=== PATIENT | female | born 1940 | race Caucasian/White ===

== ENCOUNTER → 2016-12-19 | Outpatient (CLI) | payer OTHER | LOC: FIMAGING 12:56 | DX: Z12.31 Encounter for screening mammogram for malignant neoplasm of breast (principal) | CPT/HCPCS: G0202 ==

== ENCOUNTER → 2016-12-22 | Outpatient (CLI) | payer OTHER | LOC: FIMAGING 11:40 | PROVIDERS: ATTEND Family Medicine | DX: M75.81 Other shoulder lesions, right shoulder (principal); M75.21 Bicipital tendinitis, right shoulder; M19.011 Primary osteoarthritis, right shoulder ==

== ENCOUNTER 2017-06-25 08:02 | Emergency (ER) | payer OTHER ==
[2017-06-25 08:15] VITALS: BP 129/77; PULSE 68; RESP 16; TEMP 97.9; O2SAT 98
[2017-06-25] MEDS ORDERED: PROPARACAINE 0.5% 15 ML OPHT DROP RTEYE ONE (08:25)
[2017-06-25] MEDS ORDERED: ERYTHROMYCIN 0.5% 1 GM OPHT.OINT ONE (08:43)
[2017-06-25] MEDS ORDERED: ERYTHROMYCIN 0.5% 1 GM OPHT.OINT EACHEYE ONE (08:47)
--- NOTE | 2017-06-25 08:47 | EDPHY ---
H & P Stated Complaint: right eye pain, poked with screwdriver yesterday Time Seen by Provider: 06/25/17 08:22 HPI/ROS: Chief Complaint: Right eye pain HPI: 76-year-old woman accidentally poked herself in the right eye with the screwdriver yesterday when picking up a bundle off of her kitchen table. Patient has had irritation and I since. 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 Has had some mild increased tearing. Has not noticed any changes in her vision which is usually port in that eye. Minimal eye pain but does have the sensation of some "scratchiness ". ROS: 10 point Review of Systems is negative except as noted in the HPI. PMH: Hyperlipidemia, partial visual loss right eye Social History: No smoking, no alcohol, no recreational drug use Family History: non-contributory Physical Exam: General: Awake, alert, no acute distress Eye Exam Visual Acuity: 20/200 right eye uncorrected EOM: Intact OU Pupil: Equal, round and reactive to light and accomodation OU External: Lids, lashes and margins normal OU Slit Lamp; Normal Conjuctiva, Iris normal, Cornea normal, Anterior chambers clear without cells or flare, no hyphema, normal angles Fluorosceine exam: She has fluorescein uptake in the 10 o'clock position - Personal History Current Tetanus Diphtheria and Acellular Pertussis (TDAP): Yes - Medical/Surgical History Hx Asthma: No Hx Chronic Respiratory Disease: No Hx Diabetes: No Hx Cardiac Disease: No Hx Renal Disease: No Hx Cirrhosis: No Hx Alcoholism: No Hx HIV/AIDS: No Hx Splenectomy or Spleen Trauma: No Other PMH: hysterectomy - Social History Smoking Status: Never smoked Constitutional: Initial Vital Signs Temperature (C) 36.6 C 06/25/17 08:10 Heart Rate 68 06/25/17 08:10 Respiratory Rate 16 06/25/17 08:10 Blood Pressure 129/77 H 06/25/17 08:10 O2 Sat (%) 98 06/25/17 08:10 O2 Delivery Mode Room Air Allergies/Adverse Reactions: acetaminophen [From Vicodin] Allergy (Verified 06/25/17 08:15) hydrocodone [From Vicodin] Allergy (Verified 06/25/17 08:15) Home Medications: Medication Instructions Recorded Prozac 10 MG (*) 06/25/17 Statin 06/25/17 Medical Decision Making ED Course/Re-evaluation: 76-year-old with a corneal abrasion secondary to blunt trauma yesterday. There is no evidence of perforation, traumatic iritis, or acute pressure abnormality. Eyes not red. Not painful. There is definite for seen uptake noted. She has been given erythromycin ointment and I have given her a 0.05% proparacaine solution that she can use is every 30 minutes as needed for pain. I will refer her for outpatient ophthalmology follow-up as needed. Departure - Departure Disposition: Home, Routine, Self-Care Clinical Impression: Corneal abrasion Condition: Good Instructions: Corneal Abrasion (ED), Proparacaine (Into the eye), Erythromycin (Into the eye) Additional Instructions: Apply erythromycin to the affected eye every 4 hours while awake for the next 3 days. You may use proparacaine, is 0.05% 1-2 drops in the affected eye every 30 minutes as needed for pain. Follow up with Ophthalmology in 2-3 days if symptoms are not improving. Referrals: Daniela Krishnan MD [Primary Care Provider] - As per Instructions Dawit Gonzalez MD [Medical Doctor] - As per Instructions
== END 2017-06-25 09:08 | disposition home or self-care (01) ==
LOC: CED 08:02
DX: S05.01XA Injury of conjunctiva and corneal abrasion without foreign body, right eye, initial encounter (principal); W27.0XXA Contact with workbench tool, initial encounter

== ENCOUNTER 2017-12-13 07:43 | Emergency (ER) | payer OTHER ==
--- NOTE | 2017-12-13 08:15 | EDPHY ---
H & P Stated Complaint: humphries last 2 nights HPI/ROS: CHIEF COMPLAINT: Headache History by patient HISTORY OF PRESENT ILLNESS: 77-year-old woman with a history of high cholesterol presents complaining 2 days right-sided headache which she describes as mildly throbbing. Headache 1st appeared two nights ago. It was not thunderclap onset. She took an ibuprofen and after some time the headache seemed to resolve. Again last night the headache recurred this time waking her from sleep. Patient states this is not unusual that she has frequent nighttime awakenings and difficulty sleeping. The headache has persisted until this morning. She describes it as a 6/10. She has aching anything. There is no associated nausea or vomiting. There is no visual changes or difficulty. 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 There is no dizziness. There is no focal numbness or weakness. She has had no fever chills. There has been no recent night sweats or weight loss. She does not usually get headaches. She has had a URI a week ago with some nasal congestion and cough which has resolved. She also has a small nodule and right TMJ but she has been referred to for evaluation. Patient does note that she takes frequent naps during the day and has a history of snoring in even sometimes wakes herself up from sleep from her snoring. She has never had a sleep study. She does not smoke. She typically has a glass of 1 day but has not had any alcohol in a week. She is worried that she is having a stroke. She is also concerned because she is leaving to go on vacation to [place] in 3 days. REVIEW OF SYSTEMS: As in HPI, and all other systems reviewed and are negative Source: Patient - Medical/Surgical History Hx Asthma: No Hx Chronic Respiratory Disease: No Hx Diabetes: No Hx Cardiac Disease: No Hx Renal Disease: No Hx Cirrhosis: No Hx Alcoholism: No Hx HIV/AIDS: No Hx Splenectomy or Spleen Trauma: No Other PMH: hysterectomy - Social History Smoking Status: Never smoked - Physical Exam Exam: General Appearance: Alert, well appearing, pleasant. Head: normocephalic, atraumatic Eyes: Pupils equal and round, reactive to light, no pallor or injection. Extraocular movements intact, normal fundi Mouth: Mucous membranes moist. No erythema or tonsillar enlargement Face: Positive nontender 0.5 x 0.5 cm mobile subcutaneous nodule at TMJ, no erythema or tenderness Neck: Full range of motion, no meningismus Respiratory: Normal, effort, lungs are clear to auscultation. No wheezes, rales or rhonchi. Cardiovascular: Regular rate and rhythm. S1, S2, no murmurs, gallops or rubs appreciated Gastrointestinal: Abdomen is soft and nontender, no masses, bowel sounds normal. Back: No CVA tenderness, no bony tenderness Neurological: Awake, alert and oriented x 3, cranial nerves 2-12 intact, no pronator drift, normal gait, heel to fonseca intact, normal fluent speech Skin: Warm and dry, no rashes. Musculoskeletal: No deformities or tenderness. Extremities: full range of motion, no edema, DP2+ bilat Psychiatric: Patient has normal affect, there is no agitation. Constitutional: Initial Vital Signs Temperature (C) 36.8 C 12/13/17 07:49 Heart Rate 76 12/13/17 07:49 Respiratory Rate 16 12/13/17 07:49 Blood Pressure 168/87 H 12/13/17 07:49 O2 Sat (%) 92 12/13/17 07:49 O2 Delivery Mode Room Air Allergies/Adverse Reactions: acetaminophen [From Vicodin] Allergy (Verified 12/13/17 07:49) hydrocodone [From Vicodin] Allergy (Verified 12/13/17 07:49) Home Medications: Medication Instructions Recorded Prozac 10 MG (*) 06/25/17 Statin 06/25/17 Medical Decision Making ED Course/Re-evaluation: 77-year-old woman presents with 2 days of right-sided throbbing headache with no concerning associated symptoms and normal neurologic exam. Patient does have some historical features of sleep apnea given that the headache seems to come on when she wakes in the night her morning it is possible it is related to that. At this point I have no concern for meningitis or stroke. We discussed return precautions and I am recommending following up with her primary care physician to discuss the need for sleep study and brain imaging if her symptoms persist or get worse or she develops any associated symptoms. Departure - Departure Disposition: Home, Routine, Self-Care Clinical Impression: Headache Qualifiers: Headache type: unspecified Headache chronicity pattern: unspecified pattern Intractability: not intractable Qualified Code(s): R51 - Headache Condition: Good Instructions: Acute Headache (DC) Additional Instructions: You were seen by Dr. Amber Hart today. You have a normal neurologic exam today and we are not finding any concerning cause for your headache. It is safe to take ibuprofen or Tylenol for your headaches. I recommend following up with your primary care physician discuss the need for sleep study as you have some symptoms concerning for sleep apnea. Also please follow up with her primary care physician if the headache persists and his ongoing over time. If the headache gets worse you develope new associated symptoms such as fever, vomiting or any trouble with weakness or vision then he should be seen immediately for head imaging. Return for any worsening or new concerns. Referrals: Daniela Krishnan MD [Primary Care Provider] - As per Instructions
[2017-12-13 08:23] VITALS: BP 144/86; PULSE 68; RESP 18; TEMP 97.9; O2SAT 93
== END 2017-12-13 08:21 | disposition home or self-care (01) ==
LOC: CED 07:43
DX: R51 Headache (principal)

== ENCOUNTER → 2018-01-02 | Outpatient (CLI) | payer OTHER | LOC: FIMAGING 13:21 | PROVIDERS: ATTEND Family Medicine | DX: Z12.31 Encounter for screening mammogram for malignant neoplasm of breast (principal); Z80.3 Family history of malignant neoplasm of breast ==